=== PATIENT | male | born 1955 | race Caucasian/White ===

== ENCOUNTER 2019-03-04 09:11 | Day surgery (SDC) | payer BC ==
[~2019-03-04 09:11] MED LIST: Lactated Ringers 1,000 ML IV SCH; Sodium Chloride 0.9% 10 ML SDV IV PRN; Sodium Chloride 0.9% 10 ML Syringe FLUSH PRN; Sodium Chloride 0.9% 2.5 ML Syringe FLUSH PRN
--- NOTE | 2019-03-04 10:13 | PCM.PREANE ---
Preanesthetic Assessment - Anesthesia/Transfusion/Family Hx Anesthesia History: Prior Anesthesia Without Reaction Family History of Anesthesia Reaction: No Transfusion History: No Prior Transfusion(s) Intubation History: Unknown - Review of Systems General: No Symptoms Pulmonary: No Symptoms Cardiovascular: No Symptoms Gastrointestinal: No Symptoms, Other (h/o colon polyps) Neurological: No Symptoms Other: Reports: None - Physical Assessment Vital Signs: Last Vital Signs Temp 36.2 C 03/04/19 09:28 Pulse 69 03/04/19 09:28 Resp 14 03/04/19 09:28 BP 129/77 03/04/19 09:55 Pulse Ox 97 03/04/19 09:28 Height: 5 ft 9 in Weight: 103.419 kg ASA Class: 2 Mental Status: Alert & Oriented x3 Airway Class: Mallampati = 2 Dentition: Reports: Normal Dentition (small chip on front upper incisor) Thyro-Mental Finger Breadths: 3 Mouth Opening Finger Breadths: 3 ROM/Head Extension: Limited/Partial Lungs: Clear to Auscultation, Normal Respiratory Effort Cardiovascular: Regular Rate, Regular Rhythm - Allergies Allergies/Adverse Reactions: Allergies Allergy/AdvReac Type Severity Reaction Status Date / Time No Known Allergies Allergy Verified 02/28/19 09:00 - Blood Blood Available: No - Anesthesia Plan Pre-Op Medication Ordered: None - Acknowledgements Anesthesia Type Planned: MAC Pt an Appropriate Candidate for the Planned Anesthesia: Yes Alternatives and Risks of Anesthesia Discussed w Pt/Guardian: Yes Pt/Guardian Understands and Agrees with Anesthesia Plan: Yes PreAnesthesia Questionnaire HEENT History: Reports: Other (See Below) Other HEENT History: reading glasses Cardiovascular History: Reports: Hypertension Respiratory History: Reports: None Gastrointestinal History: Reports: Colon Polyp, GERD Genitourinary History: Reports: None Musculoskeletal History: Reports: Gout Neurological History: Reports: None Psychiatric History: Reports: Anxiety Endocrine/Metabolic History: Reports: Obesity/BMI 30+ Hematologic History: Reports: None Immunologic History: Reports: None Oncologic (Cancer) History: Reports: None Dermatologic History: Reports: None - Past Surgical History Head Surgeries/Procedures: Reports: None HEENT Surgical History: Reports: Eye Surgery Other HEENT Surgeries/Procedures: left eye surgery Cardiovascular Surgical History: Reports: None Respiratory Surgical History: Reports: None GI Surgical History: Reports: Colonoscopy (2012 and 2014) Male Surgical History: Reports: None Endocrine Surgical History: Reports: None Neurological Surgical History: Reports: None Musculoskeletal Surgical History: Reports: None Oncologic Surgical History: Reports: None Dermatological Surgical History: Reports: None - SUBSTANCE USE Smoking Status *Q: Former Smoker Tobacco Use Within Last Twelve Months: No Recreational Drug Use History: No - HOME MEDS Home Medications: Home Meds Allopurinol [Zyloprim] 300 mg PO DAILY 02/28/19 [History] Omeprazole 20 mg PO ASDIRECTED PRN 02/28/19 [History] Telmisartan/Hydrochlorothiazid [Telmisartan-Hctz 80-12.5 mg Tb] 1 tab PO DAILY 02/28/19 [History] amLODIPine Besylate [Amlodipine Besylate] 10 mg PO DAILY 02/28/19 [History] - CURRENT (IN HOUSE) MEDS Current Meds: Current Medications Lactated Ringer's (Ringers, Lactated) 1,000 mls @ 125 mls/hr IV ASDIRECTED ROCKY Last Admin: 03/04/19 09:31 Dose: 125 mls/hr Sodium Chloride (Saline Flush) 10 ml FLUSH ASDIRECTED PRN PRN Reason: Keep Vein Open Sodium Chloride (Saline Flush) 2.5 ml FLUSH ASDIRECTED PRN PRN Reason: Keep Vein Open Sodium Chloride (Saline Flush) 10 ml FLUSH ASDIRECTED PRN PRN Reason: Keep Vein Open Sodium Chloride (Saline Flush) 2.5 ml FLUSH ASDIRECTED PRN PRN Reason: Keep Vein Open Sodium Chloride (Normal Saline) 10 ml IV ASDIRECTED PRN PRN Reason: IV Use
[2019-03-04] MEDS ORDERED: Midazolam 1 MG/ML 2 ML SDV ONE (10:51)
[2019-03-04] MEDS ORDERED: Propofol 200 MG/20 ML SDV ONE (10:51)
[2019-03-04] MEDS ORDERED: fentaNYL 100 MCG/2 ML SDV ONE (11:36)
[2019-03-04] MEDS ORDERED: Glycopyrrolate 0.2 MG/ML SDV ONE ×2 (11:44→11:50)
--- NOTE | 2019-03-04 12:13 | PCM.OPNOTE ---
- General Post-Op/Procedure Note Date of Surgery/Procedure: 03/04/19 Operative Procedure(s): Colonoscopy Findings: Colitis from 30-20 cm, diverticulosis, transverse colon polyp, descending colon polyp Pre Op Diagnosis: Diverticulosis, history of colon polyps, colitis Post-Op Diagnosis: Colitis, diverticulosis, transverse colon polyp, descending colon polyp Anesthesia Technique: [facility] – [place] Primary Surgeon: Dori Gallagher Condition: Good
--- NOTE | 2019-03-04 12:25 | PCM.POSTAN ---
POST ANESTHESIA ASSESSMENT - MENTAL STATUS Mental Status: Alert, Oriented - VITAL SIGNS Vital Signs: Last Vital Signs Temp 36.2 C 03/04/19 09:28 Pulse 70 03/04/19 12:22 Resp 12 03/04/19 12:22 BP 118/82 03/04/19 12:22 Pulse Ox 96 03/04/19 12:22 - RESPIRATORY Respiratory Status: Respiratory Rate WNL, Airway Patent, O2 Saturation Stable - CARDIOVASCULAR CV Status: Pulse Rate WNL, Blood Pressure Stable - GASTROINTESTINAL GI Status: No Symptoms - PAIN Pain Score: 0 - POST OP HYDRATION Hydration Status: Adequate & Stable - OBSERVATIONS Free Text/Narrative:: No anesthesia problems
--- NOTE | 2019-03-04 12:37 | PCM48HPAN ---
Post Anesthesia Note - EVALUATION WITHIN 48HRS OF ANESTHETIC Vital Signs in Normal Range: Yes Patient Participated in Evaluation: Yes Respiratory Function Stable: Yes Airway Patent: Yes Cardiovascular Function Stable: Yes Hydration Status Stable: Yes Pain Control Satisfactory: Yes Nausea and Vomiting Control Satisfactory: Yes Mental Status Recovered: Yes Vital Signs: Last Vital Signs Temp 36.2 C 03/04/19 09:28 Pulse 70 03/04/19 12:22 Resp 12 03/04/19 12:22 BP 118/82 03/04/19 12:22 Pulse Ox 96 03/04/19 12:22 - COMMENTS/OBSERVATIONS Free Text/Narrative:: No anesthesia problems
--- NOTE | 2019-03-04 19:24 | OR ---
SURGEON: DORI GALLAGHER MD DATE OF PROCEDURE: 03/04/2019 PREOPERATIVE DIAGNOSES: Screening colonoscopy, history of diverticulosis and colon polyps. POSTOPERATIVE DIAGNOSES: 1. Diverticulosis. 2. Descending colon polyp. 3. Transverse colon polyp. 4. Sigmoid colon colitis. PROCEDURE PERFORMED: Screening colonoscopy. PRIMARY SURGEON: Dori Gallagher MD. ANESTHESIA: MAC. INSTRUMENT USED: Olympus colonoscope. EXTENT OF EXAM: To the cecum. PREPARATION: Good. LIMITATIONS: None. INDICATION FOR EXAMINATION: The patient is a 63-year-old male who presents for a repeat 3-year colonoscopy. In the past, he was noted to have diverticulosis and colon polyps. During his last colonoscopy 3 years ago, he had a small section of colitis in the sigmoid colon. He took antibiotics for this. The patient is asymptomatic and presents for a followup screening colonoscopy. The patient and I discussed the procedure, expected perioperative course, and risks including bleeding, infection, or damage to surrounding structures including perforation. The patient verbalized understanding and wishes to proceed. PROCEDURE IN DETAIL: The patient was brought into the endoscopy suite and placed in the left lateral decubitus position. A time-out was completed verifying the patient's name, age, date of , allergies, and procedure to be performed. Monitored anesthesia care was induced and continuous oxygen was provided via nasal cannula throughout the procedure. After adequate sedation was achieved, a digital rectal exam was performed. This exam was within normal limits. A well-lubricated colonoscope was inserted in the rectum and advanced under direct visualization to the level of the cecum. The cecum was identified by both visual and anatomic landmarks. A photograph was taken of the cecal cap; however, I was unable to retroflex the scope within the cecum due to looping of the scope more proximally. The scope was fully withdrawn while examining the color, texture, anatomy, and integrity of the mucosa from the cecum to the anal canal. The terminal ileum appeared normal. In the mid transverse colon, the patient was noted to have a small sessile polyp. This was removed in piecemeal fashion using a cold biopsy forceps. A similar-appearing polyp was noted within the proximal descending colon and removed in similar fashion. The patient did have sigmoid colon diverticulosis. Between 30 and 20 cm, however, the patient had scattered areas of inflammation. There was no evidence of ulceration or any discrete mass. Biopsies were taken in this area and sent to Pathology, labeled as sigmoid colon biopsy. The scope was then brought into the rectum and retroflexed to allow visualization of the anal canal opening. This appeared normal and a photograph was taken. Scope was then straightened out and fully withdrawn. The cecum to anus time was 12 minutes. The patient tolerated the procedure well and was transferred to the PACU in stable condition. ENDOSCOPIC DIAGNOSES: 1. Diverticulosis. 2. Descending colon polyp. 3. Transverse colon polyp. 4. Sigmoid colon colitis. RECOMMENDATIONS: The patient and I discussed my findings in the PACU. I reviewed his previous colonoscopy note which indicated that this area of inflammation was in the same spot last time. Since the patient is completely asymptomatic, I will not give him antibiotics at this point. I will await the final pathology results. The patient is aware of the signs and symptoms of worsening colitis and will call should he have any of these. Otherwise, I will follow up with the patient in clinic in 2 weeks. RENATE BENNETT /[id number]
== END 2019-03-04 12:47 | disposition home or self-care (01) ==
LOC: EDSEX 09:11 → MW.SDS 09:11
PROVIDERS: ATTEND Surgery
DX: Z12.11 Encounter for screening for malignant neoplasm of colon (principal); K57.30 Diverticulosis of large intestine without perforation or abscess without bleeding; K63.5 Polyp of colon; D12.4 Benign neoplasm of descending colon; K52.9 Noninfective gastroenteritis and colitis, unspecified; K21.9 Gastro-esophageal reflux disease without esophagitis; I10 Essential (primary) hypertension; E66.9 Obesity, unspecified; Z86.010 Personal history of colon polyps; Z87.19 Personal history of other diseases of the digestive system; Z79.899 Other long term (current) drug therapy; Z68.33 Body mass index [BMI] 33.0-33.9, adult
CPT/HCPCS: 45380; J2250; J2704; J3010; J3490; J7120